=== PATIENT | female | born 1985 | race Caucasian/White ===

== ENCOUNTER 2024-05-25 16:00 | Inpatient (IN) | payer OTHER ==
[2024-05-25 16:19] VITALS: BMI 34.2
[2024-05-25] MEDS ORDERED: Diphenoxylate HCl/Atropine Tablet PO PRN (18:35)
[2024-05-25] MEDS ORDERED: Acetaminophen 500 MG TAB PO PRN (18:35)
[2024-05-25] MEDS ORDERED: Carboprost 250 MCG/ML AMP IM PRN (18:35)
[2024-05-25] MEDS ORDERED: Promethazine HCl 25 MG/ML VIAL IM PRN (18:35)
[2024-05-25] MEDS ORDERED: Ondansetron PF 4 MG/2 ML Vial IVP PRN ×2 (18:35→22:41)
[2024-05-25] MEDS ORDERED: Misoprostol 200 MCG TAB PR PRN (18:35)
[2024-05-25] MEDS ORDERED: Methylergonovine 0.2 MG/ML VIAL IM PRN ×2 (18:35→22:41)
[2024-05-25] MEDS ORDERED: Tranexamic Acid 1,000 MG/10 ML VIAL IVP PRN (18:35)
[2024-05-25] MEDS ORDERED: hydrALAZINE 20 MG/ML VIAL SLOW IVP PRN ×2 (18:35→22:41)
[2024-05-25] MEDS ORDERED: Oxytocin 30 units/NS 500 ML 500 ML IV SCH ×3 (18:45→22:45)
[2024-05-25] MEDS: Clindamycin/D5W 900 mg/50 ml Premix Bag ONE (18:45)
[2024-05-25 19:07] LABS: Hematocrit 38.1 % (34.9-44.5); Hemoglobin 12.3 g/dL (12.0-15.5); Mean Corpuscular HGB CONC 32.3 g/dL (32.0-36.0); Mean Corpuscular Hemoglobin 27.6 pg (27.0-33.0); Mean Corpuscular Volume 85.6 fL (81.6-98.3); Mean Platelet Volume 11.5 fL (7.4-10.4); Platelet Count 177 10x3/uL (150-450); RBC Distribution Width 13.5 % (11.5-14.5); Red Blood Cell (RBC) Count 4.45 10x6/uL (3.90-5.03); White Blood Cell (WBC) Count 9.47 10x3/uL (3.5-10.5)
[2024-05-25] MEDS: fentaNYL 50 mcg/mL 1 mL Vial ONE (19:17)
[2024-05-25] MEDS: Lidocaine 1% (PF) 30 ML VIAL SC PRN (19:17)
[2024-05-25 19:24] LABS: Analyzer IN Cardio CS NICU; RapidComm Collect By RN; pH (Cord, venous) 7.381 (7.250-7.350)
[2024-05-25 19:36] LABS: Syphilis Antibody Nonreactive (Nonreactive); Syphilis Antibody Index 0.07 S/CO (<1.00 Non-Reactive)
[2024-05-25 19:37] LABS: HBsAg Index 0.17 S/CO (0-0.99); Hep B Surf Ag - L&D Non-Reactive S/CO (NonReactive)
[2024-05-25] MEDS ORDERED: Ampicillin/Sulbactam 3 GM in Sodium Chloride 0.9% 100 ML IVPB SCH (19:45)
[2024-05-25] MEDS: GENTAMICIN SULFATE IVPB SCH (20:16)
[2024-05-25] MEDS: SODIUM CHLORIDE 0.9% IVPB SCH (20:16)
[2024-05-25 20:18] LABS: HIV (1/2) Antibody/Antigen Non-Reactive (NonReactive); HIV 1/2 INDEX 0.11 S/CO (<1.00)
[2024-05-25 20:39] LABS: Amphetamine Not Detected (NotDetected); Barbiturates Screen Not Detected (NotDetected); Benzodiazepine Screen Not Detected (NotDetected); Cocaine Metabolite Screen Not Detected (NotDetected); Methadone Not Detected (NotDetected); Methamphetamine Not Detected (NotDetected); Opiate Screen Not Detected (NotDetected); Oxycodone Screen Not Detected (NotDetected); Phencyclidine (PCP) Not Detected (NotDetected); THC/Cannabinoid Screen Not Detected (NotDetected); Tricyclic Screen Not Detected (NotDetected)
[2024-05-25] MEDS: Oxytocin 30 units/NS 500 ML 500 ML ONE (20:59)
[2024-05-25] MEDS: Clindamycin/D5W 900 MG in Premix 1 BAG IVPB SCH (20:59)
[2024-05-25] MEDS: Lactated Ringer's 1,000 ML IV SCH (20:59)
[2024-05-25] MEDS: fentaNYL 50 mcg/mL 1 mL Vial SLOW IVP SCH (21:00)
[2024-05-25] MEDS ORDERED: Clindamycin/D5W 900 MG in Premix 1 BAG IVPB SCH (22:00)
[2024-05-25] MEDS: Ibuprofen 800 MG TAB PO PRN (22:21)
[2024-05-25] MEDS ORDERED: Boostrix 0.5 ML (Tdap) VIAL (>/=7 yrs of age) IM ONE (22:41)
[2024-05-25] MEDS ORDERED: Milk Of Magnesia 30 ML UDCUP PO PRN (22:41)
[2024-05-25] MEDS ORDERED: Misoprostol 200 MCG TAB VAG PRN (22:41)
[2024-05-25] MEDS ORDERED: Benzocaine-Menthol 82.5 ML CAN TOP PRN (22:41)
[2024-05-25] MEDS ORDERED: Bisacodyl 10 MG SUPP PR PRN (22:41)
[2024-05-26] MEDS: Acetaminophen 325 MG TAB PO PRN (02:51)
[2024-05-26] MEDS: Ibuprofen 800 MG TAB PO SCH (05:06)
[2024-05-26] MEDS: Prenatal Vitamin 1 TAB PO SCH (08:08)
[2024-05-26] MEDS: Docusate 100 MG CAP PO SCH (08:08)
[2024-05-26] MEDS: Ferrous Sulfate 325 MG TAB PO SCH (08:42)
[2024-05-26 11:56] VITALS: TEMP 97.5
[2024-05-27 07:56] VITALS: BP 109/64
== END 2024-05-27 19:25 | disposition home or self-care (01) | DRG 807 ==
LOC: CSHLD/OP 16:00 → CSHLD 18:35 → CSHPP 21:45
PROVIDERS: ADMIT Obstetrics & Gynecology; ATTEND Obstetrics & Gynecology
PROC: 10E0XZZ Delivery of Products of Conception, External Approach (ICD-10-PCS; principal; 2024-05-25)
PROC: 0UQMXZZ Repair Vulva, External Approach (ICD-10-PCS; 2024-05-25)
DX: O77.0 Labor and delivery complicated by meconium in amniotic fluid (principal); Z37.0 Single live birth; Z3A.38 38 weeks gestation of pregnancy; O70.0 First degree perineal laceration during delivery
CPT/HCPCS: 36415; 80306; 82805; 85027; 86762; 86780; 86850; 86900; 86901; 87340; 87389; 87522; 99285; J1580; J3010; J3490